=== PATIENT | female | born 1990 | race Caucasian/White ===

== ENCOUNTER 2018-02-02 11:33 | Emergency (ER) | payer MEDICAID, OTHER ==
[2018-02-02 12:13] VITALS: BMI 22.6
[2018-02-02] MEDS ORDERED: Sodium Chloride 0.9% 1,000 ML IV STA (13:11)
--- NOTE | 2018-02-02 13:16 | ED PDOC ---
HPI: Abdomen Time Seen by Provider: 02/02/18 13:04 Chief Complaint (Nursing): Abdominal Pain Chief Complaint (Provider): Abdominal Pain History Per: Patient History/Exam Limitations: no limitations Onset/Duration Of Symptoms: Days (x10) Additional Complaint(s): 27 year old female presents to the emergency department with a complaint of crampy abdominal pain associated with bloody diarrhea ongoing for 10 days. Patient has been taking Levaquin, given by Urgent Care, for 4 days without alleviation of pain. She denies any fever, chills or vomiting. Past Medical History Reviewed: Historical Data, Nursing Documentation, Vital Signs Vital Signs: Last Vital Signs Temp 98.4 F 02/02/18 14:00 Pulse 68 02/02/18 14:00 Resp 16 02/02/18 14:00 BP 114/63 02/02/18 14:00 Pulse Ox 100 02/02/18 16:42 - Medical History PMH: No Chronic Diseases - Family History Family History: States: Unknown Family Hx - Home Medications Home Medications: Ambulatory Orders Medication Instructions Recorded Amoxicillin 500 mg PO BID #14 cap 03/07/15 Pramoxine HCl/Zinc Acetate 120 ml TP DAILY #1 lot 03/07/15 [Caladryl Clear 1%-0.1% 177 ml] Amoxicillin 500 mg PO BID #14 cap 03/08/16 Fluticasone Propionate [Flonase 1 - 2 spray NS BID #2 spray.susp 03/08/16 Allergy Relief] Loratadine/Pseudoephedrine 1 each PO BID #24 tab.er.12h 03/08/16 [Allerclear D-12Hr Tablet] Famotidine [Pepcid] 20 mg PO Q12 #14 tab 06/20/16 Ondansetron ODT [Zofran ODT] 4 mg PO Q6 PRN #16 odt 06/20/16 Ciprofloxacin HCl [Cipro] 500 mg PO BID #20 tab 02/02/18 Mesalamine [Asacol HD 800mg] 800 mg PO BID #14 tcp 02/02/18 Metronidazole [Flagyl] 500 mg PO TID #30 tablet 02/02/18 - Allergies Allergies/Adverse Reactions: Allergies Allergy/AdvReac Type Severity Reaction Status Date / Time No Known Allergies Allergy Verified 02/02/18 12:20 Review of Systems ROS Statement: Except As Marked, All Systems Reviewed And Found Negative Constitutional: Negative for: Fever, Chills Gastrointestinal: Positive for: Abdominal Pain (crampy), Diarrhea (bloody). Negative for: Vomiting Physical Exam - Reviewed Nursing Documentation Reviewed: Yes Vital Signs Reviewed: Yes - Physical Exam Appears: Positive for: Non-toxic, No Acute Distress Cardiovascular/Chest: Positive for: Regular Rate, Rhythm Respiratory: Positive for: Normal Breath Sounds. Negative for: Respiratory Distress Gastrointestinal/Abdominal: Positive for: Soft, Tenderness (left-sided mildly). Negative for: Guarding, Rebound Back: Positive for: Normal Inspection. Negative for: L CVA Tenderness, R CVA Tenderness Extremity: Positive for: Normal ROM (upper/lower) Neurologic/Psych: Positive for: Alert, Oriented. Negative for: Motor/Sensory Deficits - Laboratory Results Result Diagrams: 02/02/18 13:35 02/02/18 13:35 - ECG O2 Sat by Pulse Oximetry: 100 (RA) Pulse Ox Interpretation: Normal Medical Decision Making Medical Decision Making: Initial Impression: Abdominal pain; Bloody diarrhea Initial Plan: * CT ABD/pelvis with IV contrast * CMP * Urine * Urine dipstick * CBC * NS 1,000ml IV per 100mls/hr Time: 1552 --CT ABD/pelvis FINDINGS: LOWER THORAX: Unremarkable. LIVER: Hepatic steatosis. No focal masses. No intrahepatic bile duct dilatation or perihepatic ascites. GALLBLADDER AND BILE DUCTS: Unremarkable. PANCREAS: Unremarkable. No gross lesion or ductal dilatation. SPLEEN: Unremarkable. ADRENALS: Unremarkable. No mass. KIDNEYS AND URETERS: Unremarkable. No hydronephrosis. No solid mass. VASCULATURE: Unremarkable. No aortic aneurysm. BOWEL: Canas colitis, severe Trace pericolic fluid adjacent to the ascending colon. APPENDIX: Normal appendix. PERITONEUM: Small volume fluid in the cul-de-sac likely related to ruptured adnexal cysts. LYMPH NODES: Unremarkable. No enlarged lymph nodes. BLADDER: Unremarkable. REPRODUCTIVE: Contrast-enhancing characteristics with respect to cyst in the right adnexa which partially deformed likely recently ruptured. BONES: No acute fracture. OTHER FINDINGS: None. IMPRESSION: Moderate -severe canas colitis. Trace fluid in the right pericolic gutter. Small volume free fluid in the pelvis likely related ruptured right adnexal cysts. Additional benign and/or incidental findings described above. Time: 1634 --Patient made aware of CT results. Discussed option of hospital admission vs. outpatient therapy as patient has been on Levaquin with no improvement. Patient verbalized that she wishes to go home and follow up in an outpatient setting with a GI specialist. Patient is currently afebrile, tolerating PO well with a normal WBC. Provider will switch ABX to Cipro with an additional Rx for Flagyl and recommends patient to follow up with a GI specialist. Advised to patient to return to ED if pain returns or worsen. Scribe Attestation: Documented by Veronique Schafer, acting as a scribe for Tanmay Quinones MD. Provider Scribe Attestation: All medical record entries made by the Scribe were at my direction and personally dictated by me. I have reviewed the chart and agree that the record accurately reflects my personal performance of the history, physical exam, medical decision making, and the department course for this patient. I have also personally directed, reviewed, and agree with the discharge instructions and disposition. Disposition - Clinical Impression Clinical Impression: Colitis - Patient ED Disposition Is Patient to be Admitted: No Counseled Patient/Family Regarding: Studies Performed, Diagnosis, Need For Followup, Rx Given - Disposition Referrals: Izaiah Jones MD, PhD [Staff Provider] - Disposition: Routine/Home Disposition Time: 16:44 Condition: FAIR Prescriptions: Ciprofloxacin HCl [Cipro] 500 mg PO BID #20 tab Mesalamine [Asacol HD 800mg] 800 mg PO BID #14 tcp Metronidazole [Flagyl] 500 mg PO TID #30 tablet Instructions: Inflammatory Bowel Disease (DC), Ulcerative Colitis (DC), Crohn' s Disease (DC) Forms: Narrative (Danish)
[2018-02-02 13:54] LABS: BASO % 0.4 % (0.0-2.0); EOS # 0.5 K/uL (0.0-0.7); EOS % 6.4 % (0.0-4.0); HEMOGLOBIN 12.7 g/dL (12.0-16.0); LYMPH # 1.5 K/uL (1.0-4.3); LYMPH % 20.9 % (20.0-40.0); MEAN CELL VOLUME 83.3 fl (81.0-99.0); MEAN CORPUSCULAR HEMOGLOBIN 28.5 pg (27.0-31.0); MEAN CORPUSCULAR HGB CONC 34.3 g/dL (33.0-37.0); MEAN PLATELET VOLUME 7.2 fl (7.2-11.7); MONO # 1.5 K/uL (0.0-0.8); NEUT # 3.7 K/uL (1.8-7.0); NEUT % 51.3 % (50.0-75.0); PLATELET COUNT 366 K/uL (130-400); RBC 4.45 Mil/uL (3.80-5.20); WHITE BLOOD COUNT 7.1 K/uL (4.8-10.8)
[2018-02-02 14:09] LABS: ALB/GLOB RATIO 1.1 (1.0-2.1); ALT/SGPT 26 U/L (9-52); AST/SGOT 22 U/L (14-36); BLOOD UREA NITROGEN 4 mg/dl (7-17); CALCIUM 8.9 mg/dL (8.4-10.2); GFR AFRICAN-AMERICAN > 60; GFR NON-AFRICAN AMERICAN > 60
[2018-02-02] MEDS ORDERED: Potassium Chloride 20 mEq ER Tab PO ONE (14:11)
[2018-02-02] MEDS ORDERED: Iohexol 300 100 ML IJ ONE (14:20)
[2018-02-02] MEDS ORDERED: Sodium Chloride 0.9% 50 ML IV ONE (14:20)
[2018-02-02 14:36] LABS: EOSINOPHIL 8 % (0-7); LYMPHOCYTE 17 % (20-50); MONOCYTE 15 % (0-10); NEUTROPHIL 60 % (42-75); PLATELET ESTIMATE NORMAL (NORMAL); TOTAL CELLS COUNTED 100
[2018-02-02 14:37] LABS: ANISOCYTOSIS SLIGHT; TEARDROP CELLS SLIGHT
[2018-02-02 15:49] VITALS: RESP 16; TEMP 98.4
--- NOTE | 2018-02-02 15:53 | CT ---
PROCEDURE: CT Abdomen and Pelvis with contrast HISTORY: Abdominal pain. Bloody diarrhea. COMPARISON: None. TECHNIQUE: Contrast dose: 95 cc Omnipaque 300 Radiation dose: Total exam DLP = 263.28 mGy-cm. This CT exam was performed using one or more of the following dose reduction techniques: Automated exposure control, adjustment of the mA and/or kV according to patient size, and/or use of iterative reconstruction technique. FINDINGS: LOWER THORAX: Unremarkable. LIVER: Hepatic steatosis. No focal masses. No intrahepatic bile duct dilatation or perihepatic ascites. GALLBLADDER AND BILE DUCTS: Unremarkable. PANCREAS: Unremarkable. No gross lesion or ductal dilatation. SPLEEN: Unremarkable. ADRENALS: Unremarkable. No mass. KIDNEYS AND URETERS: Unremarkable. No hydronephrosis. No solid mass. VASCULATURE: Unremarkable. No aortic aneurysm. BOWEL: Canas colitis, severe Trace pericolic fluid adjacent to the ascending colon. APPENDIX: Normal appendix. PERITONEUM: Small volume fluid in the cul-de-sac likely related to ruptured adnexal cysts. LYMPH NODES: Unremarkable. No enlarged lymph nodes. BLADDER: Unremarkable. REPRODUCTIVE: Contrast-enhancing characteristics with respect to cyst in the right adnexa which partially deformed likely recently ruptured. BONES: No acute fracture. OTHER FINDINGS: None. IMPRESSION: Moderate -severe canas colitis. Trace fluid in the right pericolic gutter. Small volume free fluid in the pelvis likely related ruptured right adnexal cysts. Additional benign and/or incidental findings described above.
[2018-02-02 16:43] VITALS: O2SAT 100
[2018-02-02 17:05] VITALS: BP 116/74; PULSE 84
== END 2018-02-02 17:00 | disposition home or self-care (01) ==
LOC: H.ER 11:33
DX: K52.9 Noninfective gastroenteritis and colitis, unspecified (principal)
CPT/HCPCS: 74177; 80053; 81025; 85025; 99284; J7030; Q9967

== ENCOUNTER 2018-02-04 10:39 | Inpatient (IN) | payer OTHER ==
[2018-02-04 10:39] VITALS: BMI 22.6
[2018-02-04] MEDS ORDERED: Sodium Chloride 0.9% 1,000 ML IV STA (11:43)
--- NOTE | 2018-02-04 11:44 | ED PDOC ---
HPI:Nausea, Vomiting, Diarrhea Time Seen by Provider: 02/04/18 10:55 Chief Complaint (Provider): Vomiting History Per: Patient History/Exam Limitations: no limitations Onset/Duration Of Symptoms: Hrs (x1) Current Symptoms Are (Timing): Still Present Associated Symptoms: Vomiting, Diarrhea (bloody). denies: Fever, Chills, Nausea , Urinary Symptoms (hematuria or dysuria) Additional Complaint(s): Jing Hays is a 27 y/o female, with a past medical history of colitis, who presents to the ED for evaluation of vomiting onset x1 hour ago associated with intermittent right sided abdominal pain, and diarrhea. Patient states that x2 days ago she was diagnosed with colitis as revealed by a CT scan but has been experiencing constant bloody diarrhea for the past x12 days but the vomiting episode was new which prompted the ED visit. Patient was prescribed Mesalamine, Cipro and Flagyl x2 days ago and she has been compliant with medications. She denies any fever, chills, dysuria or hematuria. No further medical complaints. PMD: None provided Past Medical History Reviewed: Historical Data, Nursing Documentation, Vital Signs Vital Signs: Last Vital Signs Temp 98.3 F 02/04/18 10:44 Pulse 76 02/04/18 10:44 Resp 16 02/04/18 10:44 BP 110/73 02/04/18 10:44 Pulse Ox 99 02/04/18 10:44 - Medical History Other PMH: Colitis - Surgical History Surgical History: No Surg Hx - Family History Family History: States: Unknown Family Hx - Home Medications Home Medications: Ambulatory Orders Medication Instructions Recorded Ciprofloxacin HCl [Cipro] 500 mg PO BID #20 tab 02/02/18 Mesalamine [Asacol HD 800mg] 800 mg PO BID #14 tcp 02/02/18 Metronidazole [Flagyl] 500 mg PO TID #30 tablet 02/02/18 - Allergies Allergies/Adverse Reactions: Allergies Allergy/AdvReac Type Severity Reaction Status Date / Time No Known Allergies Allergy Verified 02/02/18 12:20 Review of Systems ROS Statement: Except As Marked, All Systems Reviewed And Found Negative Constitutional: Negative for: Fever, Chills Gastrointestinal: Positive for: Vomiting, Abdominal Pain (right sided intermittent), Diarrhea (constant, bloody). Negative for: Nausea Genitourinary Female: Negative for: Dysuria, Hematuria Physical Exam - Reviewed Nursing Documentation Reviewed: Yes Vital Signs Reviewed: Yes - Physical Exam Appears: Positive for: Non-toxic, No Acute Distress Head Exam: Positive for: ATRAUMATIC, NORMOCEPHALIC Skin: Positive for: Normal Color, Warm, Dry Eye Exam: Positive for: EOMI, Normal appearance, PERRL Neck: Positive for: Normal, Painless ROM, Supple Cardiovascular/Chest: Positive for: Regular Rate, Rhythm. Negative for: Murmur Respiratory: Positive for: Normal Breath Sounds. Negative for: Respiratory Distress Gastrointestinal/Abdominal: Positive for: Normal Exam, Soft Back: Positive for: Normal Inspection. Negative for: L CVA Tenderness, R CVA Tenderness Extremity: Positive for: Normal ROM (upper and lower extremities). Negative for : Pedal Edema, Deformity Neurologic/Psych: Positive for: Alert, Oriented. Negative for: Motor/Sensory Deficits - Laboratory Results Result Diagrams: 02/06/18 05:39 02/06/18 05:39 - ECG O2 Sat by Pulse Oximetry: 99 (RA) Pulse Ox Interpretation: Normal Medical Decision Making Medical Decision Making: Time: 11:43 Initial Impression: Vomiting Initial Plan: --CMP --Lipase --Urine --Urine dipstick --CBC with differential --Sodium chloride 0.9% 1,000 ml IV 1,000 mls/hr Scribe Attestation: Documented by Guanaco Chaudhari & Kwaku Pang, acting as a scribe for Crista Yang MD Provider Scribe Attestation: All medical record entries made by the Scribe were at my direction and personally dictated by me. I have reviewed the chart and agree that the record accurately reflects my personal performance of the history, physical exam, medical decision making, and the department course for this patient. I have also personally directed, reviewed, and agree with the discharge instructions and disposition. Disposition - Clinical Impression Clinical Impression: Colitis, Abdominal discomfort - Patient ED Disposition Is Patient to be Admitted: Yes Doctor Will See Patient In The: Hospital - Disposition Disposition: Transfer of Care Disposition Time: 16:00 Condition: STABLE - Pt Status Changed To: Hospital Disposition Of: Observation - POA Present On Arrival: None
[2018-02-04 12:52] LABS: BASO % 0.3 % (0.0-2.0); EOS # 0.6 K/uL (0.0-0.7); EOS % 8.6 % (0.0-4.0); HEMOGLOBIN 13.1 g/dL (12.0-16.0); LYMPH # 1.4 K/uL (1.0-4.3); LYMPH % 19.4 % (20.0-40.0); MEAN CELL VOLUME 83.4 fl (81.0-99.0); MEAN CORPUSCULAR HEMOGLOBIN 27.8 pg (27.0-31.0); MEAN CORPUSCULAR HGB CONC 33.3 g/dL (33.0-37.0); MEAN PLATELET VOLUME 7.3 fl (7.2-11.7); MONO # 1.3 K/uL (0.0-0.8); MONO % 18.6 % (0.0-10.0); NEUT # 3.7 K/uL (1.8-7.0); NEUT % 53.1 % (50.0-75.0); RBC 4.72 Mil/uL (3.80-5.20); RED CELL DISTRIBUTION WIDTH 12.9 % (11.5-14.5)
[2018-02-04 13:01] LABS: ALBUMIN 3.8 g/dL (3.5-5.0); ALT/SGPT 9 U/L (9-52); AST/SGOT 24 U/L (14-36); BLOOD UREA NITROGEN 3 mg/dl (7-17); GFR AFRICAN-AMERICAN > 60; GFR NON-AFRICAN AMERICAN > 60; LIPASE 39 U/L (23-300)
[2018-02-04 13:03] LABS: ALB/GLOB RATIO 1.4 (1.0-2.1)
[2018-02-04] MEDS ORDERED: Ciprofloxacin 400mg/200ml D5W 400 MG/200 ML BAG IVPB STA (15:26)
[2018-02-04] MEDS ORDERED: metroNIDAZOLE 500mg/100ml NS 100 ML IVPB STA (15:27)
[2018-02-04] MEDS ORDERED: metroNIDAZOLE 500mg/100ml NS 100 ML IVPB ONE (15:44)
[2018-02-04] MEDS ORDERED: Ciprofloxacin 400mg/200ml D5W 400 MG/200 ML BAG IVPB ONE (15:44)
[2018-02-04] MEDS: Dextrose 5%/0.45% NS 1,000 ML IV SCH (21:54)
[2018-02-04] MEDS: Ciprofloxacin 400mg/200ml D5W 400 MG/200 ML BAG IVPB SCH (21:54)
[2018-02-05] MEDS: metroNIDAZOLE 500mg/100ml NS 100 ML IVPB SCH ×3 (01:03→16:15)
--- NOTE | 2018-02-05 08:42 | CP.PCM.CON ---
History of Present Illness - History of Present Illness History of Present Illness: Gastroenterology Fellow/PGY5 Consult Note for Dr. Jones 27 year old female with no PMH presenting with vomiting and bloody diarrhea. Patient describes onset of generalized abdominal aches and watery diarrhea without blood on 01/22/18. Abdominal discomfort aggravated by oral intake to both liquids and solids leading to altered bland diet with limited intake. She resented to urgent care after four days and was prescribed Imodium without improvement. She developed bloody diarrhea up to five times a day and was prescribed Levoquin on second urgent care visit. Symptoms worsened to hourly episodes of bloody diarrhea mixed with mucus and stool particles since 01/31 ( friday) leading to third urgent care visit and recommendation to present to ER. ER visit on 02/[address] A/P IV contrast showing severe pancolitis. Patient decided for outpatient treatment and was prescribed cipro, flagyl, and mesalamine 800mg BID with no improvement over two days and one episode of vomiting up medications and bilious output leading to present admission. Most recent travel to [place] in October and november 2017. Admits to eating out more during December and first week of January but no other individuals with similar symptoms that ate similar foods. Denies fever, chills, sweats, sick contacts, eye pain/redness, skin sores, mouth ulcers, back/hip pain, kidney stones, or unintentional weight loss. Prior to 01/22/18, she admits to to being in normal state of health with no gastrointestinal symptoms or concerns. Admits to prior normal daily formed bowel movements up to twice a day without bleeding prior to symptom onset on 01/22/18. No prior EGD or colonoscopy. Family History- Mother diagnosed with ulcerative colitis in her 50s, on asacol and intermittent steroid therapy; maternal grandfather- with polyps requiring surgery in his 70s; denies stomach cancer or colon cancer Social History- rare social alcohol intake, denies tobacco and illicit drug use Surgical History- none Review of Systems - Review of Systems Review of Systems: 12-point review of systems negative except for as above Past Patient History - Past Medical History & Family History Past Medical History?: Yes - Past Social History Smoking Status: Never Smoked - CARDIAC Hx Cardiac Disorders: No - PULMONARY Hx Respiratory Disorders: No - NEUROLOGICAL Hx Neurological Disorder: No - HEENT Hx HEENT Problems: No - RENAL Hx Chronic Kidney Disease: No - ENDOCRINE/METABOLIC Hx Endocrine Disorders: No - HEMATOLOGICAL/ONCOLOGICAL Hx Blood Disorders: No Hx AIDS: No Hx Human Immunodeficiency Virus (HIV): No - INTEGUMENTARY Hx Dermatological Problems: No - MUSCULOSKELETAL/RHEUMATOLOGICAL Hx Musculoskeletal Disorders: No Hx Falls: No - GASTROINTESTINAL Hx Gastrointestinal Disorders: Yes Hx Colitis: Yes - GENITOURINARY/GYNECOLOGICAL Hx Genitourinary Disorders: No - PSYCHIATRIC Hx Psychophysiologic Disorder: No Hx Substance Use: No - SURGICAL HISTORY Hx Surgeries: No - ANESTHESIA Hx Anesthesia: No Hx Anesthesia Reactions: No Hx Malignant Hyperthermia: No Has any member of the family had a problem w/ anesthesia?: No Meds Allergies/Adverse Reactions: Allergies Allergy/AdvReac Type Severity Reaction Status Date / Time No Known Allergies Allergy Verified 02/02/18 12:20 - Medications Medications: Current Medications Ciprofloxacin (Cipro 400mg/200ml Dsw) 400 mg in 200 mls @ 200 mls/hr IVPB Q12 ELIDIA PRN Reason: Protocol Last Admin: 02/04/18 21:54 Dose: Not Given Dextrose/Sodium Chloride (Dextrose 5%/0.45% Ns 1000 Ml) 1,000 mls @ 80 mls/hr IV .[id number] ELIDIA Stop: 02/05/18 18:45 Last Admin: 02/04/18 21:54 Dose: 80 mls/hr Metronidazole (Flagyl 500mg/100ml Ns) 100 mls @ 100 mls/hr IVPB Q8 ELIDIA PRN Reason: Protocol Last Admin: 02/05/18 01:03 Dose: 100 mls/hr Physical Exam - Constitutional Appears: Non-toxic, No Acute Distress - Head Exam Head Exam: ATRAUMATIC, NORMOCEPHALIC - Eye Exam Eye Exam: EOMI, PERRL. absent: Scleral icterus Pupil Exam: PERRL. absent: Miosis, Mydriatic - ENT Exam ENT Exam: Mucous Membranes Moist, Normal Oropharynx - Neck Exam Neck exam: Positive for: Full Rom, Normal Inspection - Respiratory Exam Respiratory Exam: Clear to Auscultation Bilateral. absent: Rales, Rhonchi, Wheezes - Cardiovascular Exam Cardiovascular Exam: RRR, +S1, +S2. absent: Gallop, Rubs - GI/Abdominal Exam GI & Abdominal Exam: Hypoactive Bowel Sounds, Soft, Tenderness. absent: Distended, Firm, Guarding, Organomegaly, Rebound, Rigid Additional comments: diffuse discomfort to palpation, B/L LQ pain to palpation; negative Valdes's and McBurney's signs - Extremities Exam Extremities exam: Positive for: normal inspection. Negative for: pedal edema - Neurological Exam Neurological exam: Alert, Oriented x3 - Psychiatric Exam Psychiatric exam: Normal Affect, Normal Mood - Skin Skin Exam: Dry, Intact, Normal Color, Warm Results - Vital Signs Recent Vital Signs: Last Vital Signs Temp 97.8 F 02/05/18 07:55 Pulse 78 02/05/18 07:55 Resp 20 02/05/18 07:55 BP 108/75 02/05/18 07:55 Pulse Ox 98 02/05/18 07:55 - Labs Result Diagrams: 02/04/18 12:06 02/04/18 12:06 Labs: Laboratory Results - last 24 hr 02/04/18 02/04/18 12:06 12:06 WBC 7.0 RBC 4.72 Hgb 13.1 Hct 39.3 MCV 83.4 MCH 27.8 MCHC 33.3 RDW 12.9 Plt Count 386 MPV 7.3 Neut % (Auto) 53.1 Lymph % (Auto) 19.4 L [place] % (Auto) 18.6 H Eos % (Auto) 8.6 H Baso % (Auto) 0.3 Neut # (Auto) 3.7 Lymph # (Auto) 1.4 [place] # (Auto) 1.3 H Eos # (Auto) 0.6 Baso # (Auto) 0.0 Sodium 142 Potassium 3.4 L Chloride 104 Carbon Dioxide 27 Anion Gap 14 BUN 3 L Creatinine 0.6 L Est GFR ( Amer) > 60 Est GFR (Non-Af Amer) > 60 Random Glucose 81 Calcium 9.0 Total Bilirubin 0.5 AST 24 ALT 9 D Alkaline Phosphatase 57 Total Protein 7.5 Albumin 3.8 Globulin 2.7 Albumin/Globulin Ratio 1.4 Lipase 39 Assessment & Plan - Assessment and Plan (Free Text) Assessment: 27 year old female with no PMH presenting with vomiting and diarrhea. Active treatment of abdominal pain and bloody diarrhea since 01/22/18 secondary to severe pancolitis on CT A/P IV contrast 02/02/18 with failed outpatient antibiotic therapy. No prior EGD or colonoscopy. Plan: -DDx: infectious, inflammatory -ordered stool infectious workup- Cdiff, O&P, stool culture, fecal leukocytes -continue IV antibiotics- Cipro/Flagyl -ordered blood cultures and lactic acid -low suspicion for ischemic etiology -given family history of mother with Ulcerative Colitis ordered: fecal calprotectin, Hepatitis panel, TB Gold, TPMT activity -consider pharmacologic DVT prophylaxis if clinical status lyman not show signs of improvement in next 24-48 hours for possible IBD with increased risk of thrombosis and decreased mobility in inpatient setting -will benefit from EGD/colonoscopy likely in outpatient setting for histologic and endoscopic assessment of severity and cause of pancolitis -will consider inpatient endoscopic evaluation if no clinical to improvement to IV antibiotics -no indication for steroid therapy -supportive care: IVFs, anti-emetics, pain control, anti-spasmodic -will follow clinical course
[2018-02-05] MEDS: Ciprofloxacin 400mg/200ml D5W 400 MG/200 ML BAG IVPB SCH ×2 (08:43→21:24)
[2018-02-05] MEDS: Dextrose 5%/0.45% NS 1,000 ML IV SCH (08:43)
[2018-02-05 10:33] LABS: HEMOGLOBIN 12.6 g/dL (12.0-16.0); MEAN CELL VOLUME 83.3 fl (81.0-99.0); MEAN CORPUSCULAR HEMOGLOBIN 28.1 pg (27.0-31.0); MEAN CORPUSCULAR HGB CONC 33.8 g/dL (33.0-37.0); RBC 4.48 Mil/uL (3.80-5.20); RED CELL DISTRIBUTION WIDTH 13.1 % (11.5-14.5); WHITE BLOOD COUNT 5.6 K/uL (4.8-10.8)
[2018-02-05 10:50] LABS: BLOOD UREA NITROGEN < 2 mg/dl (7-17); CALCIUM 8.6 mg/dL (8.4-10.2); GFR AFRICAN-AMERICAN > 60; GFR NON-AFRICAN AMERICAN > 60
[2018-02-05 10:50] LABS: INR 1.4 (0.9-1.2); PROTHROMBIN TIME 15.6 Seconds (9.8-13.1)
[2018-02-05] MEDS ORDERED: Potassium Chloride 20 mEq ER Tab PO ONE ×2 (11:30→17:00)
[2018-02-05] MEDS ORDERED: Potassium Ch 20mEq in D5-1/2NS 1,000 ML IV SCH (12:44)
[2018-02-05] MEDS: Pantoprazole 40 mg EC Tab PO SCH (12:59)
[2018-02-05] MEDS: Enoxaparin 40 mg Syringe SC SCH (12:59)
[2018-02-05 13:10] LABS: C DIFF TOXIN A B NEGATIVE (NEGATIVE)
--- NOTE | 2018-02-05 13:35 | CP.PCM.HP ---
History of Present Illness - History of Present Illness History of Present Illness: CC: Abdominal pain. 27 y/o F, No Hx of chronic disease, but, recent dx with [place] Colitis, returned to ER [facility] on 02/05/18 to be evaluated for continue abdominal pain LLQ that began 10 days [facility], pain described as cramping, on and off, moderate severity 6:10, associated to new onset of vomiting/watery Red tanged diarrhea for 1 hrs [facility], Pt was seen in the ER on 02/02/18 for similar symptoms, discharged on Levaquin, Flagyl and Melamine but with no complete relief. Worsening symptom: Pain radiated to L lower back. Aggravated factor: Food. Pt denied: Fever, chills, nausea, urinary symptoms, CP, palpitations, dizziness , SOB, cough, sick contact, recent travel out of [facility]. Present on Admission - Present on Admission Any Indicators Present on Admission: No Review of Systems - Constitutional Constitutional: Other (negative) - EENT Eyes: Other (negative) Ears: Other (negative) Nose/Mouth/Throat: Other (negative) - Cardiovascular Cardiovascular: Other (negative) - Respiratory Respiratory: Other (negative) - Gastrointestinal Gastrointestinal: Abdominal Pain, Cramping, Loose Stools, Vomiting - Genitourinary Genitourinary: Other (negative) - Musculoskeletal Musculoskeletal: Back Pain (lower, radiating pain) - Integumentary Integumentary: Other (negative) - Neurological Neurological: Other (negative) - Psychiatric Psychiatric: Other (negative) - Endocrine Endocrine: Other (negative) - Hematologic/Lymphatic Hematologic: Other (negative) Past Patient History - Past Medical History & Family History Past Medical History?: Yes Pertinent Family History: Mother: Ulcerative Colitis. Maternal Grandfather: Polyps requiring surgery. - Past Social History Smoking Status: Never Smoked Alcohol: None Drugs: Denies Home Situation {Lives}: With Family - CARDIAC Hx Cardiac Disorders: No - PULMONARY Hx Respiratory Disorders: No - NEUROLOGICAL Hx Neurological Disorder: No - HEENT Hx HEENT Problems: No - RENAL Hx Chronic Kidney Disease: No - ENDOCRINE/METABOLIC Hx Endocrine Disorders: No - HEMATOLOGICAL/ONCOLOGICAL Hx Blood Disorders: No Hx AIDS: No Hx Human Immunodeficiency Virus (HIV): No - INTEGUMENTARY Hx Dermatological Problems: No - MUSCULOSKELETAL/RHEUMATOLOGICAL Hx Musculoskeletal Disorders: No Hx Falls: No - GASTROINTESTINAL Hx Gastrointestinal Disorders: Yes Hx Colitis: Yes - GENITOURINARY/GYNECOLOGICAL Hx Genitourinary Disorders: No - PSYCHIATRIC Hx Psychophysiologic Disorder: No Hx Substance Use: No - SURGICAL HISTORY Hx Surgeries: No - ANESTHESIA Hx Anesthesia: No Hx Anesthesia Reactions: No Hx Malignant Hyperthermia: No Has any member of the family had a problem w/ anesthesia?: No Meds Allergies/Adverse Reactions: Allergies Allergy/AdvReac Type Severity Reaction Status Date / Time No Known Allergies Allergy Verified 02/02/18 12:20 Physical Exam - Constitutional Appears: No Acute Distress - Head Exam Head Exam: NORMAL INSPECTION - Eye Exam Eye Exam: PERRL - ENT Exam ENT Exam: Normal Exam - Neck Exam Neck exam: Positive for: Normal Inspection - Respiratory Exam Respiratory Exam: NORMAL BREATHING PATTERN - Cardiovascular Exam Cardiovascular Exam: REGULAR RHYTHM - GI/Abdominal Exam GI & Abdominal Exam: Normal Bowel Sounds, Soft, Tenderness (mil on palpation b/ l lower quadrants) - Extremities Exam Extremities exam: Positive for: normal inspection - Back Exam Back exam: NORMAL INSPECTION - Neurological Exam Neurological exam: Alert, Oriented x3 Additional comments: No motor/sensory deficit. - Psychiatric Exam Psychiatric exam: Normal Mood - Skin Skin Exam: Warm Results - Vital Signs Recent Vital Signs: Last Vital Signs Temp 97.8 F 02/05/18 07:55 Pulse 78 02/05/18 07:55 Resp 20 02/05/18 07:55 BP 108/75 02/05/18 07:55 Pulse Ox 98 02/05/18 07:55 reviewed Karime - Labs Result Diagrams: 02/05/18 10:17 02/05/18 10:17 Labs: Laboratory Results - last 24 hr 02/05/18 02/05/18 02/05/18 10:14 10:14 10:17 WBC 5.6 RBC 4.48 Hgb 12.6 Hct 37.3 MCV 83.3 MCH 28.1 MCHC 33.8 RDW 13.1 Plt Count 397 PT 15.6 H INR 1.4 H Sodium Potassium Chloride Carbon Dioxide Anion Gap BUN Creatinine Est GFR ( Amer) Est GFR (Non-Af Amer) Random Glucose Lactic Acid 1.0 Calcium C. difficile Ag & Toxin 02/05/18 02/05/18 10:17 12:00 WBC RBC Hgb Hct MCV MCH MCHC RDW Plt Count PT INR Sodium 140 Potassium 3.3 L Chloride 104 Carbon Dioxide 25 Anion Gap 14 BUN < 2 L Creatinine 0.5 L Est GFR ( Amer) > 60 Est GFR (Non-Af Amer) > 60 Random Glucose 108 H Lactic Acid Calcium 8.6 C. difficile Ag & Toxin Negative reviewed J.P. Assessment & Plan (1) Abdominal pain Status: Acute Priority: High (2) Colitis Status: Acute Priority: High - Assessment and Plan (Free Text) Plan: Continue Cipro, Flagyl, Bentyl and rest of Tx. Pt seen by GI in [facility], recommended EGD/Colonoscopy likely in outpatient setting for histologic and endoscopy assessment of severity and cause of Pancolitis. ID consult appreciated. - Date & Time Date: 02/05/18 Time: 11:10
[2018-02-05 16:02] LABS: HEPATITIS B SURFACE AG Negative (NEGATIVE)
[2018-02-05 16:08] LABS: HEPATITIS A IGM NEGATIVE (NEGATIVE); HEPATITIS B CORE AB NEGATIVE (NEGATIVE)
[2018-02-05 16:19] LABS: HEPATITIS C ANTIBODY NEGATIVE (NEGATIVE)
[2018-02-05 18:11] LABS: FECAL LEUKOCYTES POSITIVE (NEGATIVE)
[2018-02-05] MEDS ORDERED: metroNIDAZOLE 500mg/100ml NS 100 ML IVPB SCH (23:00)
[2018-02-06] MEDS: metroNIDAZOLE 500mg/100ml NS 100 ML IVPB SCH ×3 (00:48→18:02)
[2018-02-06 06:05] LABS: HEMOGLOBIN 13.6 g/dL (12.0-16.0); MEAN CELL VOLUME 83.4 fl (81.0-99.0); MEAN CORPUSCULAR HEMOGLOBIN 28.4 pg (27.0-31.0); RBC 4.79 Mil/uL (3.80-5.20); RED CELL DISTRIBUTION WIDTH 13.2 % (11.5-14.5); WHITE BLOOD COUNT 8.7 K/uL (4.8-10.8)
[2018-02-06 06:39] LABS: ALB/GLOB RATIO 1.2 (1.0-2.1); ALT/SGPT 18 U/L (9-52); AST/SGOT 19 U/L (14-36); BLOOD UREA NITROGEN < 2 mg/dl (7-17); CALCIUM 8.9 mg/dL (8.4-10.2); GFR AFRICAN-AMERICAN > 60; GFR NON-AFRICAN AMERICAN > 60
--- NOTE | 2018-02-06 07:51 | CP.PCM.PN ---
Subjective - Date & Time of Evaluation Date of Evaluation: 02/06/18 Time of Evaluation: 07:49 - Subjective Subjective: Gastroenterology Fellow/PGY5 Progress Note Patient tolerated less than 50% of clear liquid diet due to abdominal discomfort , pain scale 5/10. Notes mild improvement of nausea. Notes 15 episodes of bloody diarrhea in last 24 hours. A 12-point review of systems negative except for as above. Objective - Vital Signs/Intake and Output Vital Signs (last 24 hours): Temp Pulse Resp BP Pulse Ox 98.4 F 106 H 20 98/57 L 96 02/06/18 07:42 02/06/18 07:42 02/06/18 07:42 02/06/18 07:42 02/06/18 07:42 - Medications Medications: Current Medications Dicyclomine HCl (Bentyl) 10 mg PO Q6H PRN PRN Reason: Irritable bowel symptoms Enoxaparin Sodium (Lovenox) 40 mg SC DAILY [facility] PRN Reason: Protocol Last Admin: 02/05/18 12:59 Dose: Not Given Ciprofloxacin (Cipro 400mg/200ml Dsw) 400 mg in 200 mls @ 200 mls/hr IVPB Q12 [facility] PRN Reason: Protocol Last Admin: 02/05/18 21:24 Dose: 200 mls/hr Metronidazole (Flagyl 500mg/100ml Ns) 100 mls @ 100 mls/hr IVPB Q8 [facility] PRN Reason: Protocol Last Admin: 02/06/18 00:48 Dose: 100 mls/hr Ondansetron HCl (Zofran Inj) 4 mg IVP Q6 PRN PRN Reason: Nausea/Vomiting Last Admin: 02/06/18 00:51 Dose: 4 mg Pantoprazole Sodium (Protonix Ec Tab) 40 mg PO DAILY [facility] Last Admin: 02/05/18 12:59 Dose: 40 mg - Labs Labs: 02/06/18 05:39 02/06/18 05:39 PT 15.6 Seconds (9.8-13.1) H 02/05/18 10:14 INR 1.4 (0.9-1.2) H 02/05/18 10:14 - Constitutional Appears: Non-toxic, No Acute Distress - Head Exam Head Exam: ATRAUMATIC, NORMOCEPHALIC - Eye Exam Eye Exam: EOMI, PERRL. absent: Scleral icterus Pupil Exam: PERRL. absent: Miosis, Mydriatic - ENT Exam ENT Exam: Mucous Membranes Moist, Normal Oropharynx - Neck Exam Neck Exam: Full ROM, Normal Inspection - Respiratory Exam Respiratory Exam: Clear to Ausculation Bilateral. absent: Rales, Rhonchi, Wheezes - Cardiovascular Exam Cardiovascular Exam: RRR, +S1, +S2. absent: Gallop, Rubs - GI/Abdominal Exam GI & Abdominal Exam: Soft, Normal Bowel Sounds. absent: Distended, Firm, Guarding, Rigid, Tenderness, Organomegaly, Rebound - Extremities Exam Extremities Exam: Normal Inspection. absent: Pedal Edema - Neurological Exam Neurological Exam: Alert, Awake - Psychiatric Exam Psychiatric exam: Normal Affect, Normal Mood - Skin Skin Exam: Dry, Intact, Normal Color, Warm Assessment and Plan - Assessment and Plan (Free Text) Assessment: 27 year old female with no PMH presenting with vomiting and diarrhea. Active treatment of abdominal pain and bloody diarrhea since 01/22/18 secondary to severe pancolitis on CT A/P IV contrast 02/02/18 with failed outpatient antibiotic therapy. No prior EGD or colonoscopy. Plan: -DDx: infectious, inflammatory -negative Cdiff negative, lactic acid 1.0, Hepatitis panel -fecal leukocytes positive -pending O&P, stool culture, blood cultures -continue IV Cipro/Flagyl -maternal history of Ulcerative Colitis: pending fecal calprotectin, TB Gold, TPMT activity -will benefit from likely in outpatient setting for histologic and endoscopic assessment of severity and cause of pancolitis -elective outpatient follow up for EGD/colonoscopy for further investigation and healing time to decrease perforation risk -will consider inpatient endoscopic evaluation if no clinical to improvement to IV antibiotics -supportive care: IVFs, anti-emetics, pain control, anti-spasmodic -clear liquid diet, advance as tolerated -will follow clinical course
[2018-02-06] MEDS: Enoxaparin 40 mg Syringe SC SCH ×2 (08:49→08:51)
[2018-02-06] MEDS: Pantoprazole 40 mg EC Tab PO SCH (08:49)
[2018-02-06] MEDS ORDERED: Potassium Chloride 20 MEQ in Sodium Chloride 0.45% 1,000 ML IV SCH (09:00)
[2018-02-06] MEDS: Ciprofloxacin 400mg/200ml D5W 400 MG/200 ML BAG IVPB SCH (10:00)
[2018-02-06] MEDS: Potassium Chl 20 mEq in NS 1,000 ML IV SCH (10:48)
--- NOTE | 2018-02-06 13:38 | CP.PCM.PN ---
Subjective - Date & Time of Evaluation Date of Evaluation: 02/06/18 Time of Evaluation: 12:00 - Subjective Subjective: blood streak diarrhea, nausea Objective - Vital Signs/Intake and Output Vital Signs (last 24 hours): Temp Pulse Resp BP Pulse Ox 98.4 F 106 H 20 98/57 L 96 02/06/18 07:42 02/06/18 07:42 02/06/18 07:42 02/06/18 07:42 02/06/18 07:42 - Medications Medications: Current Medications Dicyclomine HCl (Bentyl) 10 mg PO Q6H PRN PRN Reason: Irritable bowel symptoms Enoxaparin Sodium (Lovenox) 40 mg SC DAILY [facility] PRN Reason: Protocol Last Admin: 02/06/18 08:51 Dose: Not Given Famotidine (Pepcid) 20 mg PO Q12 [facility] Last Admin: 02/06/18 11:56 Dose: 20 mg Metronidazole (Flagyl 500mg/100ml Ns) 100 mls @ 100 mls/hr IVPB Q8 [facility] PRN Reason: Protocol Last Admin: 02/06/18 08:48 Dose: 100 mls/hr Potassium Chloride/Sodium Chloride (Potassium Chl 20 Meq In Ns) 1,000 mls @ 80 mls/hr IV .[id number] [facility] Stop: 02/07/18 08:56 Last Admin: 02/06/18 10:48 Dose: 80 mls/hr Piperacillin Sod/Tazobactam (Sod 3.375 gm/ Sodium Chloride) 100 mls @ 100 mls/ hr IVPB Q6 [facility] PRN Reason: Protocol Loperamide HCl (Imodium) 2 mg PO DAILY PRN PRN Reason: Diarrhea Last Admin: 02/06/18 11:56 Dose: 2 mg Ondansetron HCl (Zofran Inj) 4 mg IVP Q4 [facility] Last Admin: 02/06/18 11:56 Dose: 4 mg Pantoprazole Sodium (Protonix Ec Tab) 40 mg PO DAILY [facility] Last Admin: 02/06/18 08:49 Dose: 40 mg - Labs Labs: 02/06/18 05:39 02/06/18 05:39 PT 15.6 Seconds (9.8-13.1) H 02/05/18 10:14 INR 1.4 (0.9-1.2) H 02/05/18 10:14 - Constitutional Appears: No Acute Distress - Head Exam Head Exam: NORMAL INSPECTION - Eye Exam Eye Exam: PERRL - ENT Exam ENT Exam: Normal Exam - Neck Exam Neck Exam: Normal Inspection - Respiratory Exam Respiratory Exam: Clear to Ausculation Bilateral - Cardiovascular Exam Cardiovascular Exam: REGULAR RHYTHM - GI/Abdominal Exam GI & Abdominal Exam: Soft, Normal Bowel Sounds - Extremities Exam Extremities Exam: Normal Inspection - Back Exam Back Exam: NORMAL INSPECTION - Neurological Exam Neurological Exam: Alert, CN II-XII Intact, Oriented x3. absent: Motor Sensory Deficit - Psychiatric Exam Psychiatric exam: Normal Affect, Normal Mood - Skin Skin Exam: Warm Assessment and Plan (1) Abdominal pain Status: Acute (2) Colitis Status: Acute - Assessment and Plan (Free Text) Plan: Bentyl , Imodium , Zosyn , Zofran , GI f/u appreciated
[2018-02-06] MEDS: Piperacillin/Tazobact 3.375 GM in Sodium Chloride 0.9% 100 ML IVPB SCH ×2 (16:43→21:34)
[2018-02-07] MEDS: metroNIDAZOLE 500mg/100ml NS 100 ML IVPB SCH ×3 (00:19→16:41)
[2018-02-07] MEDS: Potassium Chl 20 mEq in NS 1,000 ML IV SCH (00:21)
[2018-02-07] MEDS: Piperacillin/Tazobact 3.375 GM in Sodium Chloride 0.9% 100 ML IVPB SCH ×4 (04:04→21:48)
[2018-02-07] MEDS: Enoxaparin 40 mg Syringe SC SCH (08:40)
[2018-02-07] MEDS: Pantoprazole 40 mg EC Tab PO SCH (08:44)
[2018-02-07 08:53] LABS: TB ANTIGEN MINUS NIL 0.01 IU/mL
--- NOTE | 2018-02-07 17:36 | CP.PCM.PN ---
Subjective - Date & Time of Evaluation Date of Evaluation: 02/07/18 Time of Evaluation: 11:20 - Subjective Subjective: less blood streak diarrhea today, no abdominal pain Objective - Vital Signs/Intake and Output Vital Signs (last 24 hours): Temp Pulse Resp BP Pulse Ox 98 F 75 18 94/63 L 100 02/07/18 16:41 02/07/18 16:41 02/07/18 16:41 02/07/18 16:41 02/07/18 16:41 - Medications Medications: Current Medications Dicyclomine HCl (Bentyl) 10 mg PO Q6H PRN PRN Reason: Irritable bowel symptoms Enoxaparin Sodium (Lovenox) 40 mg SC DAILY [facility] PRN Reason: Protocol Last Admin: 02/07/18 08:40 Dose: Not Given Famotidine (Pepcid) 20 mg PO Q12 [facility] Last Admin: 02/07/18 08:44 Dose: 20 mg Metronidazole (Flagyl 500mg/100ml Ns) 100 mls @ 100 mls/hr IVPB Q8 [facility] PRN Reason: Protocol Last Admin: 02/07/18 16:41 Dose: 100 mls/hr Piperacillin Sod/Tazobactam (Sod 3.375 gm/ Sodium Chloride) 100 mls @ 100 mls/ hr IVPB Q6 [facility] PRN Reason: Protocol Last Admin: 02/07/18 16:40 Dose: 100 mls/hr Loperamide HCl (Imodium) 2 mg PO DAILY PRN PRN Reason: Diarrhea Last Admin: 02/07/18 08:44 Dose: 2 mg Ondansetron HCl (Zofran Inj) 4 mg IVP Q4 [facility] Last Admin: 02/07/18 16:40 Dose: 4 mg Pantoprazole Sodium (Protonix Ec Tab) 40 mg PO DAILY [facility] Last Admin: 02/07/18 08:44 Dose: 40 mg - Labs Labs: 02/06/18 05:39 02/06/18 05:39 PT 15.6 Seconds (9.8-13.1) H 02/05/18 10:14 INR 1.4 (0.9-1.2) H 02/05/18 10:14 - Constitutional Appears: No Acute Distress - Head Exam Head Exam: NORMAL INSPECTION - Eye Exam Eye Exam: PERRL - ENT Exam ENT Exam: Normal Exam - Neck Exam Neck Exam: Normal Inspection - Respiratory Exam Respiratory Exam: Clear to Ausculation Bilateral - Cardiovascular Exam Cardiovascular Exam: REGULAR RHYTHM - GI/Abdominal Exam GI & Abdominal Exam: Soft, Normal Bowel Sounds - Extremities Exam Extremities Exam: Normal Inspection - Back Exam Back Exam: NORMAL INSPECTION - Neurological Exam Neurological Exam: Alert, CN II-XII Intact, Oriented x3. absent: Motor Sensory Deficit - Psychiatric Exam Psychiatric exam: Normal Affect, Normal Mood - Skin Skin Exam: Warm Assessment and Plan (1) Abdominal pain Status: Acute (2) Colitis Status: Acute - Assessment and Plan (Free Text) Plan: continue Imodium , Bentyl , Pepcid , Zosyn , Protonix, Zofran
[2018-02-08] MEDS: metroNIDAZOLE 500mg/100ml NS 100 ML IVPB SCH (00:27)
[2018-02-08] MEDS: Piperacillin/Tazobact 3.375 GM in Sodium Chloride 0.9% 100 ML IVPB SCH ×4 (04:40→21:18)
[2018-02-08] MEDS: Enoxaparin 40 mg Syringe SC SCH (08:48)
[2018-02-08] MEDS: Pantoprazole 40 mg EC Tab PO SCH (08:59)
--- NOTE | 2018-02-08 15:30 | CP.PCM.PN ---
Subjective - Date & Time of Evaluation Date of Evaluation: 02/08/18 Time of Evaluation: 15:30 - Subjective Subjective: F/U Abdominal pain. Diarrhea improved, no abdominal pain Objective - Vital Signs/Intake and Output Vital Signs (last 24 hours): Temp Pulse Resp BP Pulse Ox 97.8 F 76 20 94/64 L 99 02/08/18 08:26 02/08/18 08:26 02/08/18 08:26 02/08/18 08:26 02/08/18 08:26 - Medications Medications: Current Medications Dicyclomine HCl (Bentyl) 10 mg PO Q6H PRN PRN Reason: Irritable bowel symptoms Famotidine (Pepcid) 20 mg PO Q12 [facility] Last Admin: 02/08/18 08:53 Dose: 20 mg Piperacillin Sod/Tazobactam (Sod 3.375 gm/ Sodium Chloride) 100 mls @ 100 mls/ hr IVPB Q6 [facility] PRN Reason: Protocol Last Admin: 02/08/18 09:00 Dose: 100 mls/hr Loperamide HCl (Imodium) 2 mg PO DAILY PRN PRN Reason: Diarrhea Last Admin: 02/07/18 08:44 Dose: 2 mg Ondansetron HCl (Zofran Inj) 4 mg IVP Q4 [facility] Last Admin: 02/08/18 13:00 Dose: Not Given Pantoprazole Sodium (Protonix Ec Tab) 40 mg PO DAILY [facility] Last Admin: 02/08/18 08:59 Dose: 40 mg - Labs Labs: 02/06/18 05:39 02/06/18 05:39 PT 15.6 Seconds (9.8-13.1) H 02/05/18 10:14 INR 1.4 (0.9-1.2) H 02/05/18 10:14 Assessment and Plan (1) Abdominal pain Status: Acute (2) Colitis Status: Acute - Assessment and Plan (Free Text) Plan: Continue Zosyn, Pepcid, Protonix.
[2018-02-09] MEDS: Piperacillin/Tazobact 3.375 GM in Sodium Chloride 0.9% 100 ML IVPB SCH ×2 (04:59→11:21)
[2018-02-09 08:00] VITALS: BP 96/65; PULSE 85; RESP 19; TEMP 97.3; O2SAT 100
[2018-02-09] MEDS: Pantoprazole 40 mg EC Tab PO SCH (09:06)
--- NOTE | 2018-02-09 20:14 | CP.PCM.DIS ---
Provider - Provider Date of Admission: 02/06/18 09:18 Attending physician: George Ding MD Diagnosis - Discharge Diagnosis (1) Abdominal pain Status: Acute Priority: High (2) Colitis Status: Acute Priority: High Hospital Course - Lab Results Lab Results: Micro Results 02/05/18 10:14 Blood Blood Culture - Preliminary NO GROWTH AFTER 4 DAYS 02/05/18 12:00 Stool Stool Culture - Final NO SALMONELLA, SHIGELLA OR CAMPYLOBACTER ISOLATED. 02/05/18 12:00 Stool Ova and Parasite Concentrate Exam - Final Most Recent Lab Values WBC 8.7 K/uL (4.8-10.8) D 02/06/18 05:39 RBC 4.79 Mil/uL (3.80-5.20) 02/06/18 05:39 Hgb 13.6 g/dL (12.0-16.0) 02/06/18 05:39 Hct 40.0 % (34.0-47.0) 02/06/18 05:39 MCV 83.4 fl (81.0-99.0) 02/06/18 05:39 MCH 28.4 pg (27.0-31.0) 02/06/18 05:39 MCHC 34.0 g/dL (33.0-37.0) 02/06/18 05:39 RDW 13.2 % (11.5-14.5) 02/06/18 05:39 Plt Count 450 K/uL (130-400) H 02/06/18 05:39 MPV 7.3 fl (7.2-11.7) 02/04/18 12:06 Neut % (Auto) 53.1 % (50.0-75.0) 02/04/18 12:06 Lymph % (Auto) 19.4 % (20.0-40.0) L 02/04/18 12:06 Titus % (Auto) 18.6 % (0.0-10.0) H 02/04/18 12:06 Eos % (Auto) 8.6 % (0.0-4.0) H 02/04/18 12:06 Baso % (Auto) 0.3 % (0.0-2.0) 02/04/18 12:06 Neut # (Auto) 3.7 K/uL (1.8-7.0) 02/04/18 12:06 Lymph # (Auto) 1.4 K/uL (1.0-4.3) 02/04/18 12:06 Titus # (Auto) 1.3 K/uL (0.0-0.8) H 02/04/18 12:06 Eos # (Auto) 0.6 K/uL (0.0-0.7) 02/04/18 12:06 Baso # (Auto) 0.0 K/uL (0.0-0.2) 02/04/18 12:06 PT 15.6 Seconds (9.8-13.1) H 02/05/18 10:14 INR 1.4 (0.9-1.2) H 02/05/18 10:14 Sodium 140 mmol/l (132-148) 02/06/18 05:39 Potassium 3.6 MMOL/L (3.6-5.0) 02/06/18 05:39 Chloride 104 mmol/L (98-107) 02/06/18 05:39 Carbon Dioxide 25 mmol/L (22-30) 02/06/18 05:39 Anion Gap 15 (10-20) 02/06/18 05:39 BUN < 2 mg/dl (7-17) L 02/06/18 05:39 Creatinine 0.6 mg/dl (0.7-1.2) L 02/06/18 05:39 Est GFR ( Amer) > 60 02/06/18 05:39 Est GFR (Non-Af Amer) > 60 02/06/18 05:39 Random Glucose 99 mg/dL (65-105) 02/06/18 05:39 Lactic Acid 1.0 MMOL/L (0.7-2.1) 02/05/18 10:14 Calcium 8.9 mg/dL (8.4-10.2) 02/06/18 05:39 Total Bilirubin 0.4 mg/dl (0.2-1.3) 02/06/18 05:39 AST 19 U/L (14-36) 02/06/18 05:39 ALT 18 U/L (9-52) 02/06/18 05:39 Alkaline Phosphatase 50 U/L (38-126) 02/06/18 05:39 Total Protein 7.2 G/DL (6.3-8.2) 02/06/18 05:39 Albumin 4.0 g/dL (3.5-5.0) 02/06/18 05:39 Globulin 3.3 gm/dL (2.2-3.9) 02/06/18 05:39 Albumin/Globulin Ratio 1.2 (1.0-2.1) 02/06/18 05:39 Lipase 39 U/L (23-300) 02/04/18 12:06 Stool Leukocytes, Qual Positive (NEGATIVE) H 02/05/18 12:00 C. difficile Ag & Toxin Negative (NEGATIVE) 02/05/18 12:00 Hepatitis A IgM Ab Negative (NEGATIVE) 02/05/18 10:14 Hep Bs Antigen Negative (NEGATIVE) 02/05/18 10:14 Hep B Core IgM Ab Negative (NEGATIVE) 02/05/18 10:14 Hepatitis C Antibody Negative (NEGATIVE) 02/05/18 10:14 TB Test (QFT) Nil 0.07 IU/mL 02/05/18 10:17 TB Test Mitogen - Nil 7.51 IU/mL 02/05/18 10:17 TB Test TB - Nil 0.01 IU/mL 02/05/18 10:17 TB Test (QFT) Negative (Negative) 02/05/18 10:17 Discharge Exam - Head Exam Head Exam: NORMAL INSPECTION Discharge Plan - Discharge Medications Prescriptions: Dicyclomine [Bentyl] 20 mg PO Q8H PRN #20 cap PRN Reason: Irritable Bowel Symptoms Ciprofloxacin HCl [Cipro] 500 mg PO BID #20 tab Metronidazole [Flagyl] 500 mg PO TID #30 tablet - Follow Up Plan Condition: STABLE Disposition: HOME/ ROUTINE Instructions: Diarrhea in Adolescents and Adults, [place] Diet, Acute Abdomen ( Belly Pain), Adult (DC) Additional Instructions: Complete all antibiotics. Follow up with Dr. Jones in 1 week Referrals: Izaiah Jones MD, PhD [Staff Provider] - George Ding MD [Staff Provider] -
--- NOTE | 2018-02-10 10:04 | CP.PCM.PN ---
Subjective - Date & Time of Evaluation Date of Evaluation: 02/09/18 Time of Evaluation: 12:00 - Subjective Subjective: no overnight events Objective - Vital Signs/Intake and Output Vital Signs (last 24 hours): Temp Pulse Resp BP Pulse Ox 97.3 F L 85 19 96/65 L 100 02/09/18 09:00 02/09/18 09:00 02/09/18 09:00 02/09/18 09:00 02/09/18 09:00 - Labs Labs: 02/06/18 05:39 02/06/18 05:39 PT 15.6 Seconds (9.8-13.1) H 02/05/18 10:14 INR 1.4 (0.9-1.2) H 02/05/18 10:14 - Head Exam Head Exam: NORMOCEPHALIC - Neck Exam Neck Exam: Normal Inspection - Respiratory Exam Respiratory Exam: Clear to Ausculation Bilateral, NORMAL BREATHING PATTERN - Cardiovascular Exam Cardiovascular Exam: REGULAR RHYTHM - GI/Abdominal Exam GI & Abdominal Exam: Soft, Normal Bowel Sounds Assessment and Plan - Assessment and Plan (Free Text) Assessment: 27 yo female with colitis doing better tolerating diet dc planning abx for 10-14 days outpatient colonoscopy
== END 2018-02-09 14:22 | disposition home or self-care (01) | DRG 392 ==
LOC: H.ER 10:39 → H.ERHOLD 15:09 → H.MEDSURG1 16:27 → OBSVTOIN 02-06 09:18 → H.MEDSURG1 02-09 00:58
PROVIDERS: ADMIT Internal Medicine Pulmonary Disease; ATTEND Internal Medicine Pulmonary Disease
DX: K52.9 Noninfective gastroenteritis and colitis, unspecified (principal)